=== PATIENT | female | born 1965 | race Caucasian/White ===

== ENCOUNTER → 2020-04-10 09:00 | Outpatient (CLI) | payer OTHER, SELFPAY | PROVIDERS: PCP Internal Medicine; Referring Provider Nurse Practitioner Family; Visit Provider Nurse Practitioner Family | DX: Z20.828 Contact with and (suspected) exposure to other viral communicable diseases (principal) | CPT/HCPCS: 87635; C9803; U0003 ==

== ENCOUNTER 2023-10-25 12:07 | Emergency (ER) | payer OTHER, SELFPAY ==
[2023-10-25 12:08] VITALS: BP 138/87; PULSE 86; RESP 14; TEMP 35.9; O2SAT 99; BMI 42.0
--- NOTE | 2023-10-25 12:24 | CT_ITS ---
STUDY: CT BRAIN WITHOUT CONTRAST REASON FOR EXAM: Female, 58 years old. Softball head injury RADIATION DOSAGE (If Supplied By Facility): CTDIvol = ( 44.99 ) mGy, DLP = ( 796.11 ) mGycm TECHNIQUE: Transaxial CT imaging of the brain was performed without administration of intravenous contrast material. Individualized dose optimization techniques were used for this CT. COMPARISON: No relevant priors. FINDINGS: There is left frontotemporal soft tissue swelling. Normal calvarium. Normal size ventricles and extra-axial spaces for the patient''s age. Normal white matter tracts of the cerebral hemispheres. Normal basal ganglia and thalami. Normal brainstem. Normal cerebellum. There is no intracranial hemorrhage. There are no findings of an acute ischemic infarction. Normal visualized paranasal sinuses. CT/Brain/Head without Contrast IMPRESSION: Normal unenhanced CT scan of the brain. Soft tissue swelling. Electronically Signed: Marlo Ying MD at 13:10 EDT ,
--- NOTE | 2023-10-25 12:28 | EX.ED.DYSGE1 ---
HPI History of Present Illness Chief Complaint: Head Injury Narrative Narrative: Patient is a very pleasant 58-year-old female who is presenting to the ER with close head injury. 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 There was a girl that was at home plate, hitting a foul ball that was somewhat of a line drive that went over the fence and hit patient to the left frontal aspect of her forehead. Patient has mild headache, 4/10. Patient takes no blood thinners. Patient did not lose consciousness, no nausea or vomiting. There was a principal trainer there who wrapped her head with a Curlex, also has had ice. Patient states the swelling is better now than what it was. Patient has approximately 6x6 cm area of swelling that is approxi-2 cm thick of hematoma noted to the left forehead. Patient has no neck pain. She has no midline or paracervical tenderness palpation. Range of motion no difficulty. No blurred vision, loss of vision, vision changes. No hearing changes. Patient friend is at bedside, she drove her to the ER. This is not under Worker's Comp. at this time. No other acute complaints. Patient takes no blood thinners. [facility] Medical History (Updated 10/25/23 @ 14:[address] Adan Clement DO) Head injury Home Medications levothyroxine 75 mcg tablet 75 mcg PO DAILY 09/11/14 [History Last Taken Unknown] sertraline 25 mg tablet (Zoloft) 25 mg PO DAILY 09/11/14 [History Last Taken Unknown] Allergy/AdvReac Type Severity Reaction Status Date / Time No Known Allergies Allergy Verified 10/25/23 12:10 Social History Smoking Status: Never smoker ROS ROS ED ROS Narrative REVIEW OF SYSTEMS: Unless otherwise stated in this report the patient's positive and negative responses for review of systems for constitutional, eyes, ENT, cardiovascular, respiratory, gastrointestinal, neurological, , musculoskeletal, and integument systems and related systems to the presenting problem are either stated in the history of present illness or were not pertinent or were negative for the symptoms and/or complaints related to the presenting medical problem. EXAM Physical Exam Narrative Exam Narrative: Vital signs reviewed and patient is not hypoxic. General: The patient appears well and in no apparent distress. Patient is resting comfortably on cart. Not toxic, lethargic, or listless. Skin: Warm, dry, no pallor noted. There is no rash noted. Head: Normocephalic, patient has a 6 x 6 cm, somewhat firm hematoma to the left forehead, not over the left restorationist. Approximate 2 cm thick, mild ecchymosis noted to the area of swelling. Patient initially had a Curlex dressing with ice on top of it. Patient has no midline or paracervical tenderness to palpation. Full range of motion of cervical spine with no difficulty. Eye: Normal conjunctiva, no drainage, EOMI. PERRL. Pupils are 4/2, equal, bilateral. Equal ocular motion with no pain or difficulty. Patient has no pain to palpation to the left orbital wall. Patient has mild to moderate tenderness palpation to left frontal hematoma. Ears, Nose, Mouth, and Throat: oral mucosa is moist. Nares patent. Mouth without vesicles. Cardiovascular: Regular Rate and Rhythm, no murmurs, gallops, or rubs Respiratory: Patient is in no distress, no accessory muscle use, lungs are clear to auscultation, no wheezing, rales or rhonchi Back: non-tender, GI: Soft, no tenderness Musculoskeletal: The patient has full range of motion of all extremities and joints with no difficulty. Patient has no motor, no sensory deficits. Neurological: A&O x4, normal speech, no focal neurological deficits. Psychiatric: Cooperative Const Vital Signs: 10/25/23 12:08 10/25/23 12:38 10/25/23 14:08 Temperature 96.6 F L Temperature Source Temporal Pulse Rate 86 78 Respiratory Rate 14 16 Respiratory Effort Normal Non-Labored Respiratory Depth Normal Respiratory Pattern Normal Blood Pressure 138/87 H 116/81 H Blood Pressure Mean 104 92 Pulse Ox 99 99 Oxygen Delivery Method Room Air Room Air 10/25/23 14:15 Temperature 98.4 F Temperature Source Pulse Rate 78 Respiratory Rate 16 Respiratory Effort Respiratory Depth Respiratory Pattern Blood Pressure 116/81 H Blood Pressure Mean 92 Pulse Ox 99 Oxygen Delivery Method MDM MDM MDM Narrative Medical decision making narrative: Patient CT of the brain shows no acute findings. Patient was educated multiple times and using ice 20 minutes on, 20 minutes off. Patient will alternate Tylenol and anti-inflammatories as needed for pain. Patient will continues to use compression. Education includes head injury/concussion was done at bedside in the discharge paperwork. Patient was given work on/work restrictions for Friday and Friday. Patient understands the most importance of ice. Patient refrain and the question is at bedside. Radiography Diagnostic Testing: Clinical Impression(s) from Imaging Studies Brain CT 10/25/23 12:24 IMPRESSION: Normal unenhanced CT scan of the brain. Soft tissue swelling. Electronically Signed: Marlo Ying MD at 13:10 EDT , Discharge Plan Triage Chief Complaint: Head Injury ED Provider: Adan Clement Dx/Rx/DC Orders Clinical Impression: Traumatic hematoma of face, CHI (closed head injury) Instructions: ED Head Injury (Adult), ED Hematoma Prescriptions: No Action levothyroxine 75 MCG tablet 75 mcg PO DAILY sertraline [Zoloft] 25 MG tablet 25 mg PO DAILY Stand Alone Forms: Work Status Form, Work / School Excuse Primary Care Provider: Danica Dai Referrals: Danica Dai MD [Primary Care Provider] - Activity Restrictions/Additional Instructions: Work note was given for Friday and Friday, off work if needed, otherwise activity as tolerated by patient with reduction of lights, sounds, noises if needed. Ice 20 minutes on, 20 minutes off for the next 2 to 3 days. Alternate Tylenol and anti-inflammatories every 4 hours as needed for any type of pain Do not use heat. Disposition Disposition: Home, Self Care Discharge Date/Time: 10/25/23 14:40
[2023-10-25] MEDS: Acetaminophen 325 MG Tablet 650 MG PO (12:33)
[2023-10-25 14:08] VITALS: BP 116/81; PULSE 78; RESP 16; O2SAT 99
[2023-10-25 14:15] VITALS: BP 116/81; PULSE 78; RESP 16; TEMP 36.9; O2SAT 99
== END 2023-10-25 14:40 | disposition home or self-care (01) ==
PROVIDERS: Emergency Provider Emergency Medicine; PCP Internal Medicine; Visit Provider Emergency Medicine
DX: S00.83XA Contusion of other part of head, initial encounter (principal); S09.90XA Unspecified injury of head, initial encounter; Z79.899 Other long term (current) drug therapy; X58.XXXA Exposure to other specified factors, initial encounter
CPT/HCPCS: 70450; 99282